=== PATIENT | female | born 1945 | race Caucasian/White ===

== ENCOUNTER → 2020-12-20 | Day surgery (SDC) | payer OTHER | END | disposition home or self-care (01) | LOC: JRADUS-SUR 10:27 | PROVIDERS: ATTEND Internal Medicine | PROC: 0H9T3ZX Drainage of Right Breast, Percutaneous Approach, Diagnostic (ICD-10-PCS; principal; 2020-12-20) | DX: C50.911 Malignant neoplasm of unspecified site of right female breast (principal) | CPT/HCPCS: 19083; 77065-TC; 87899; A4648 ==

== ENCOUNTER 2021-01-23 04:39 | Day surgery (SDC) | payer OTHER ==
[2021-01-22 14:12] VITALS: BMI 25.7
[2021-01-23] MEDS ORDERED: oxyCODONE HCL 5 MG TABLET PO PRN ×3 (11:34→14:37)
[2021-01-23] MEDS ORDERED: ONDANSETRON 4 MG/2 ML VIAL IVPUSH PRN ×2 (11:34→14:37)
[2021-01-23] MEDS ORDERED: LACTATED RINGERS SOLUTION 1,000 ML IV SCH (11:45)
[2021-01-23] MEDS ORDERED: ISOSULFAN BLUE 50 MG/5 ML VIAL SQ ONE (12:38)
[2021-01-23] MEDS ORDERED: PROPOFOL 20 ML ONE (13:19)
[2021-01-23] MEDS ORDERED: MIDAZOLAM HCL 2 MG/2 ML SINGLE DOSE VIAL ONE (13:19)
[2021-01-23] MEDS ORDERED: SUCCINYLCHOLINE CHLORIDE 200 MG/10 ML SYRINGE ONE (13:19)
[2021-01-23] MEDS ORDERED: ceFAZolin SODIUM 1 GM VIAL IVPB ONE (13:30)
[2021-01-23] MEDS ORDERED: LIDOCAINE HCL 1%, 10 MG/ML (20ML VIAL) INF ONE (13:47)
[2021-01-23] MEDS ORDERED: PROMETHAZINE HCL 25 MG/1 ML VIAL IVPB PRN (14:37)
[2021-01-23 16:41] VITALS: BP 168/56; PULSE 84; TEMP 97.5
== END 2021-01-23 16:20 | disposition home or self-care (01) ==
LOC: JASU-SURG 04:39
PROVIDERS: ATTEND Surgery
PROC: 0HBT0ZZ Excision of Right Breast, Open Approach (ICD-10-PCS; principal; 2021-01-23 11:00)
DX: C50.411 Malignant neoplasm of upper-outer quadrant of right female breast (principal); N60.31 Fibrosclerosis of right breast; N64.89 Other specified disorders of breast
CPT/HCPCS: 78195-TC; 88307-TC; 88342-TC; 94760; A9541

== ENCOUNTER 2021-03-29 14:30 | Emergency (ER) | payer OTHER ==
[2021-03-29 14:56] VITALS: BMI 25.7
[2021-03-29] MEDS ORDERED: IBUPROFEN 600 MG TABLET (FP) PO ONE ×2 (17:44→17:50)
[2021-03-29 18:48] LABS: EOS % 1.4 % (0-4.5); HEMATOCRIT 40.7 % (32.4-45.2); HEMOGLOBIN 13.9 GM/dL (10.7-15.3); LYMPH % 24.8 % (8-40); MCH 29.3 pg (25.7-33.7); MCHC 34.1 g/dl (32.0-36.0); MEAN CELL VOLUME 85.9 fl (80-96); MEAN PLT VOLUME 8.4 fl (7.5-11.1); MONO % 6.7 % (3.8-10.2); NEUT % 66.1 % (42.8-82.8); PLATELET COUNT 285 10^3/uL (134-434); RBC 4.74 M/mm3 (3.60-5.2); RDW 14.5 % (11.6-15.6); WHITE BLOOD COUNT 8.8 K/mm3 (4.0-10.0)
[2021-03-29 18:56] LABS: CHLORIDE 105 mmol/L (98-107); SODIUM 140 mmol/L (136-145)
[2021-03-29 18:58] LABS: CALCIUM 8.8 mg/dL (8.5-10.1)
[2021-03-29 18:59] LABS: ALBUMIN 4.3 g/dl (3.4-5.0); ANION GAP 8 MMOL/L (8-16); BLOOD UREA NITROGEN 8.2 mg/dL (7-18); CO2 26 mmol/L (21-32); GLUCOSE,RANDOM 83 mg/dL (74-106)
[2021-03-29 19:01] LABS: BILIRUBIN,DIRECT 0.1 mg/dL (0.0-0.2); SGPT/ALT 16 U/L (13-61)
[2021-03-29 19:02] LABS: CREATININE 0.6 mg/dL (0.55-1.3); SGOT/AST 11 U/L (15-37)
[2021-03-29 19:03] LABS: BILIRUBIN,TOTAL 0.3 mg/dL (0.2-1); TOT PROT 7.4 g/dl (6.4-8.2)
[2021-03-29 19:05] LABS: ALK PHOS 97 U/L (45-117)
[2021-03-29 20:22] VITALS: BP 152/59; PULSE 70
[2021-03-29 21:44] LABS: EPI CELLS 24 /uL (0-25.1); HYALINE CASTS 3 /uL (0-3.1); URINE APPEARANCE CLEAR; URINE BACTERIA 209 /uL (0-1359); URINE BILIRUBIN NEGATIVE (NEGATIVE); URINE COLOR YELLOW; URINE GLUCOSE (UA) NEGATIVE (NEGATIVE); URINE KETONE NEGATIVE (NEGATIVE); URINE LEUK ESTERASE 1+ (NEGATIVE); URINE NITRITE NEGATIVE (NEGATIVE); URINE PROTEIN NEGATIVE (NEGATIVE); URINE RBC 19 /uL (0-23.9); URINE UROBILINOGEN 0.2 mg/dL (0.2-1.0); URINE WBC 47 /uL (0-25.8)
== END 2021-03-29 23:11 | disposition home or self-care (01) ==
LOC: JER 14:30
DX: M25.572 Pain in left ankle and joints of left foot (principal)
CPT/HCPCS: 36415; 73610-TC-LT-FY; 73630-TC-LT; 80053; 80076; 80307; 81003; 84484; 85025; 93971-TC; 99284-25

== ENCOUNTER 2024-01-18 00:07 | Inpatient (IN) | payer OTHER ==
[2024-01-18] MEDS: ALBUTEROL SO4 2.5/IPRATROPIUM 0.5 INH SOL 3 ML VIAL.NEB. NEB SCH ×2 (00:22→08:13)
[2024-01-18] MEDS ORDERED: methylPREDNISolone NA SUCC 125 MG/2 ML VIAL ONE (00:23)
[2024-01-18] MEDS: methylPREDNISolone NA SUCC 125 MG/2 ML VIAL IVPB ONE (00:32)
[2024-01-18 00:42] VITALS: BMI 25.7
[2024-01-18 01:15] LABS: VENOUS BASE EXCESS -4.4 mmol/L (-2-2); VENOUS O2 SATURATION 60.3 % (70-80); VENOUS PCO2 34.3 mmHg (38-52); VENOUS PH 7.381 (7.310-7.410)
[2024-01-18] MEDS ORDERED: dilTIAZem HCL 50 MG/10 ML - 10 ML VIAL ONE (01:15)
[2024-01-18] MEDS: SODIUM CHLORIDE 0.9% 500 ML INFUS.BAG IV ONE (01:16)
[2024-01-18] MEDS: dilTIAZem HCL 50 MG/10 ML - 10 ML VIAL IVPUSH ONE (01:17)
[2024-01-18 01:40] LABS: HEMATOCRIT 40.1 % (32.4-45.2); HEMOGLOBIN 13.9 GM/dL (10.7-15.3); WHITE BLOOD COUNT 20.3 K/mm3 (4.0-10.0)
[2024-01-18 01:41] LABS: MCH 30.9 pg (25.7-33.7); MCHC 34.7 g/dl (32.0-36.0); PLATELET COUNT 211 10^3/uL (134-434); RDW 14.8 % (11.6-15.6)
[2024-01-18 01:43] LABS: N-TERMINAL BNP 3555.7 pg/ml (5-450)
[2024-01-18] MEDS ORDERED: dilTIAZem HCL 30 MG TABLET ONE (01:44)
[2024-01-18] MEDS: dilTIAZem HCL 30 MG TABLET PO ONE (01:47)
[2024-01-18 01:48] LABS: ALBUMIN 3.8 g/dl (3.4-5.0); BILIRUBIN,TOTAL 1.5 mg/dL (0.2-1); CALCIUM 8.7 mg/dL (8.5-10.1); CREATININE 0.8 mg/dL (0.55-1.3); PHOSPHOROUS 3.1 mg/dL (2.5-4.9); TOT PROT 6.9 g/dl (6.4-8.2)
[2024-01-18 02:11] LABS: PROTHROMBIN TIME (PATIENT) 61.4 SEC (9.7-13.0)
[2024-01-18 02:12] LABS: ACTIVATED PTT 52.3 SECONDS (25.2-36.5)
[2024-01-18 02:13] LABS: INR 5.72 (0.83-1.09)
[2024-01-18] MEDS ORDERED: DOXYCYCLINE HYCLATE 100 MG VIAL ONE (02:59)
[2024-01-18] MEDS ORDERED: cefTRIAXone SODIUM 1 GM VIAL ONE (02:59)
[2024-01-18] MEDS: CEFTRIAXONE 1 GM in DEXTROSE 5%-WATER - 50 ML IVPB ONE (03:04)
[2024-01-18] MEDS: FUROSEMIDE 40 MG/4 ML INJECTABLE VIAL IVPUSH ONE (03:09)
[2024-01-18] MEDS: DOXYCYCLINE INJECTION 100 MG in DEXTROSE 5%-WATER 100 ML IVPB ONE (03:22)
[2024-01-18] MEDS: dilTIAZem HCL 30 MG TABLET PO SCH ×2 (08:14→11:52)
[2024-01-18] MEDS: guaiFENesin/D-METHORPHAN HB 10 ML UNIT-DOSE CUPS PO PRN (09:29)
[2024-01-18] MEDS: LORATADINE 10 MG TABLET PO SCH (09:29)
[2024-01-18] MEDS: predniSONE 20 MG TABLET (UD) PO SCH (09:29)
[2024-01-18] MEDS: FLUTICASONE/SALMETEROL (WIXELA) 100 MCG/50 MCG DISKUS IH SCH (09:31)
[2024-01-18] MEDS: AZITHROMYCIN IVPB 500 MG/250 ML BAG IVPB SCH (09:32)
[2024-01-18] MEDS: CEFTRIAXONE 1 GM in DEXTROSE 5%-WATER - 50 ML IVPB SCH (09:32)
[2024-01-18 10:15] LABS: ACTIVATED PTT 54.3 SECONDS (25.2-36.5); PROTHROMBIN TIME (PATIENT) 70.4 SEC (9.7-13.0)
[2024-01-18 10:20] LABS: INR 6.58 (0.83-1.09)
[2024-01-18] MEDS: IPRATROPIUM BR 0.02% 0.5 MG/2.5 ML VIAL.NEB. NEB SCH (11:26)
[2024-01-18] MEDS ORDERED: RIVAROXABAN 20 MG TABLET PO SCH (18:00)
[2024-01-18] MEDS: LEVALBUTEROL HCL 0.31 MG/3 ML VIAL.NEB IH SCH (19:24)
[2024-01-18] MEDS: ROSUVASTATIN CA 5 MG TABLET PO SCH (21:10)
[2024-01-19] MEDS: methylPREDNISolone NA SUCC 40 MG/1 ML VIAL IVPUSH SCH (03:05)
[2024-01-19 08:29] LABS: INR 1.81 (0.83-1.09); PROTHROMBIN TIME (PATIENT) 20.3 SEC (9.7-13.0)
[2024-01-19] MEDS: predniSONE 20 MG TABLET (UD) PO SCH (09:09)
[2024-01-19] MEDS: MULTIVITAMINS (DAILY MVI) TABLET (FP) PO SCH (09:10)
[2024-01-19 09:13] LABS: ALBUMIN 3.4 g/dl (3.4-5.0); ALK PHOS 71 U/L (45-117); ANION GAP 9 mmol/L (4-13); BILIRUBIN,TOTAL 0.6 mg/dl (0.2-1); CALCIUM 8.9 mg/dl (8.5-10.1); CHLORIDE 108 mmol/L (98-107); CO2 22 mmol/L (21-32); CREATININE 0.6 mg/dl (0.6-1.3); GLUCOSE,RANDOM 129 mg/dl (74-106); MAGNESIUM 1.9 mg/dL (1.8-2.4); PHOSPHOROUS 2.7 (2.5-4.9); POTASSIUM 4.2 mmol/L (3.5-5.1); SGOT/AST 13 U/L (15-37); SGPT/ALT 14 U/L (7-52); SODIUM 139 mmol/L (136-145); TOT PROT 5.2 g/dl (6.4-8.2)
[2024-01-19 09:23] LABS: HEMATOCRIT 33.4 % (32.4-45.2); HEMOGLOBIN 11.7 GM/dL (10.7-15.3); MCH 30.8 pg (25.7-33.7); MEAN PLT VOLUME 10.2 fl (7.5-11.1); PLATELET COUNT 177 10^3/uL (134-434); RBC 3.79 M/mm3 (3.60-5.2); RDW 14.6 % (11.6-15.6); WHITE BLOOD COUNT 16.8 K/mm3 (4.0-10.0)
[2024-01-19 10:15] LABS: ANISOCYTOSIS 0; MACROCYTOSIS 0
[2024-01-19] MEDS: RIVAROXABAN 20 MG TABLET PO SCH (17:42)
[2024-01-19] MEDS: dilTIAZem HCL 30 MG TABLET PO ONE (20:10)
[2024-01-20] MEDS: MELATONIN 5 MG TABLETS PO ONE (03:33)
[2024-01-20 07:53] LABS: HEMATOCRIT 45.4 % (32.4-45.2); HEMOGLOBIN 14.7 G/dL (10.7-15.3); MCHC 32.4 g/dl (32.0-36.0); MEAN CELL VOLUME 92.7 fl (80-96); MEAN PLT VOLUME 9.8 fl (7.5-11.1); PLATELET COUNT 253.6 10^3/uL (134-434); RDW 15.3 % (11.6-15.6); WHITE BLOOD COUNT 24.1 10^3/uL (4.0-10.8)
[2024-01-20 07:55] LABS: INR 2.21 (0.83-1.09); PROTHROMBIN TIME (PATIENT) 24.6 SEC (9.7-13.0)
[2024-01-20 08:20] LABS: CALCIUM 9.1 mg/dl (8.5-10.1); CREATININE 0.8 mg/dl (0.6-1.3); POTASSIUM 4.1 mmol/L (3.5-5.1)
[2024-01-20] MEDS: metoPROLOL SUCCINATE 25 MG TAB.SR.24H (FP) PO SCH (09:47)
[2024-01-20] MEDS: ACETAMINOPHEN 325 MG TABLET (FP) PO PRN (20:16)
[2024-01-21 01:59] VITALS: RESP 18
[2024-01-21 08:45] LABS: ALBUMIN 4.1 g/dl (3.4-5.0); BILIRUBIN,TOTAL 0.5 mg/dl (0.2-1); CALCIUM 9.3 mg/dl (8.5-10.1); CREATININE 0.7 mg/dl (0.6-1.3); POTASSIUM 3.6 mmol/L (3.5-5.1); TOT PROT 6.1 g/dl (6.4-8.2)
[2024-01-21 10:42] VITALS: BP 128/70; PULSE 110; TEMP 98
[2024-01-21 10:52] LABS: HEMATOCRIT 41.6 % (32.4-45.2); HEMOGLOBIN 13.8 GM/dL (10.7-15.3); MCH 30.1 pg (25.7-33.7); MCHC 33.1 g/dl (32.0-36.0); MEAN CELL VOLUME 90.9 fl (80-96); MEAN PLT VOLUME 9.6 fl (7.5-11.1); PLATELET COUNT 314 10^3/uL (134-434); RBC 4.58 M/mm3 (3.60-5.2); RDW 14.7 % (11.6-15.6); WHITE BLOOD COUNT 22.4 K/mm3 (4.0-10.0)
[2024-01-21 11:24] LABS: ANISOCYTOSIS 1+; MACROCYTOSIS 0
== END 2024-01-21 13:12 | disposition home or self-care (01) | DRG 190 ==
LOC: FER 00:07 → FM/S 06:10
PROVIDERS: ADMIT Internal Medicine
DX: J44.0 Chronic obstructive pulmonary disease with (acute) lower respiratory infection (principal); J18.9 Pneumonia, unspecified organism; J96.01 Acute respiratory failure with hypoxia; J44.1 Chronic obstructive pulmonary disease with (acute) exacerbation; F03.90 Unspecified dementia, unspecified severity, without behavioral disturbance, psychotic disturbance, mood disturbance, and anxiety; I35.0 Nonrheumatic aortic (valve) stenosis; I11.0 Hypertensive heart disease with heart failure; I50.9 Heart failure, unspecified; I48.91 Unspecified atrial fibrillation; E78.5 Hyperlipidemia, unspecified; Z85.3 Personal history of malignant neoplasm of breast
CPT/HCPCS: 36415; 70450-TC; 71045-TC-FY; 71275-TC; 80048; 80053; 80061; 82803; 83735; 83880; 84100; 84443; 84484; 85025; 85027; 85610; 85730; 87040; 93005; 93306-TC; 94640; 94761; 97116-GP; 97162-GP; 99291; Q9967

== ENCOUNTER 2024-03-26 10:31 | Day surgery (SDC) | payer OTHER ==
[2024-03-26] MEDS: ZOLEDRONIC ACID/MAN/WATER 5 MG/100 ML INFUS..BTL IVPB ONE (10:40)
[2024-03-26 14:09] VITALS: BP 121/67; PULSE 93; RESP 16; TEMP 97.7
== END 2024-03-26 11:20 | disposition home or self-care (01) ==
LOC: JONCCHEMO 10:31 → J7W 10:31 → JONCCHEMO 11:20
PROVIDERS: ATTEND Internal Medicine Hematology & Oncology
PROC: 3E033GC Introduction of Other Therapeutic Substance into Peripheral Vein, Percutaneous Approach (ICD-10-PCS; principal; 2024-03-26)
DX: C50.811 Malignant neoplasm of overlapping sites of right female breast (principal); M81.6 Localized osteoporosis [Lequesne]; E55.9 Vitamin D deficiency, unspecified
CPT/HCPCS: 96365; J3489

== ENCOUNTER → 2024-07-27 | Day surgery (SDC) | payer OTHER | END | disposition home or self-care (01) | LOC: FMAMMOTONE 12:18 | PROVIDERS: ATTEND Internal Medicine Hematology & Oncology | PROC: 0HBU3ZX Excision of Left Breast, Percutaneous Approach, Diagnostic (ICD-10-PCS; principal; 2024-07-27) | DX: N60.22 Fibroadenosis of left breast (principal); N60.82 Other benign mammary dysplasias of left breast; N64.89 Other specified disorders of breast; R92.1 Mammographic calcification found on diagnostic imaging of breast | CPT/HCPCS: 19081; 76098-TC-FY; 87899; 88305-TC; A4648 ==